=== PATIENT | male | born 1980 | race Caucasian/White ===

== ENCOUNTER 2017-10-16 02:32 | Emergency (ER) | payer SELFPAY ==
[2017-10-16 02:51] VITALS: TEMP 97.9
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
[2017-10-16 07:07] VITALS: BP 136/79; PULSE 81; RESP 18; O2SAT 100
--- NOTE | 2017-10-16 10:51 | RAD ---
PROCEDURE: Left Knee Radiographs. HISTORY: Pain. COMPARISON: None. FINDINGS: BONES: Normal. No fracture. JOINTS: Normal. No osteoarthritis. JOINT EFFUSION: None. OTHER FINDINGS: None. IMPRESSION: Normal radiographs of the left knee.
== END 2017-10-16 07:00 | disposition home or self-care (01) ==
LOC: MERGE 02:32 → ED 02:32
DX: S02.2XXA Fracture of nasal bones, initial encounter for closed fracture (principal); Y08.89XA Assault by other specified means, initial encounter; Y92.9 Unspecified place or not applicable

== ENCOUNTER 2018-04-01 15:01 | Emergency (ER) | payer OTHER, MEDICAID ==
[2018-04-01 15:10] VITALS: TEMP 98.1
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
[2018-04-01 17:16] VITALS: BP 126/73; PULSE 76; RESP 16; O2SAT 100
== END 2018-04-01 17:00 | disposition home or self-care (01) ==
LOC: ED 15:01
DX: S09.90XA Unspecified injury of head, initial encounter (principal); M54.5 Low back pain; V49.59XA Passenger injured in collision with other motor vehicles in traffic accident, initial encounter; Y92.410 Unspecified street and highway as the place of occurrence of the external cause